=== PATIENT | female | born 1975 | race Caucasian/White ===

== ENCOUNTER → 2020-10-16 09:32 | Outpatient (BNVA) | payer OTHER, SELFPAY | PROVIDERS: PCP Internal Medicine; Visit Provider Internal Medicine ==

== ENCOUNTER 2020-10-27 18:54 | Outpatient (REF) | payer OTHER, SELFPAY ==
--- NOTE | ~2020-10-27 | MR_ITS ---
EXAMINATION: MR LUMBAR SPINE WITHOUT CONTRAST CLINICAL INFORMATION: Post laminectomy syndrome. COMPARISON: None TECHNIQUE: MRI of the lumbar spine was obtained using routine sequences without contrast. FINDINGS: There are postoperative findings related to interbody placement at the L3-L4 level. The L4-L5 disc appears hypoplastic. The remainder of the nonsurgical disc heights appear preserved. There is minimal anterolisthesis of L5 on S1. Bone marrow edema is seen within the right L5 and S1 pedicles compatible stress response. A small focus of T2 hyperintensity is seen within the ventral aspect of the distal spinal cord at the T12 level best seen on sagittal T2 series 2 image /14. The cauda equina nerve roots appear normal. The visualized paraspinal muscles and intra-abdominal and pelvic contents are within normal limits. SPINAL LEVELS: L1-L2: No posterior disc abnormality. No spinal canal or neural foraminal stenosis. L2-L3: No posterior disc abnormality. Mild facet arthropathy. No spinal canal or neural foraminal stenosis. L3-L4: Interbody disc replacement. Fusion hardware seen in the bilateral pedicles. Bulging disc mildly encroaches on the left subarticular zone. No foraminal nerve root compression. L4-L5: Hypoplastic disc. Moderate to severe narrowing of the right neural foramen which appears to be partly congenital related to dysplasia of the right-sided posterior elements. No spinal canal stenosis. Mild narrowing left neural foramen. L5-S1: Disc bulging with severe facet arthropathy. Left-sided synovial facet cyst which abuts the traversing left S1 nerve root. An additional synovial facet cyst is seen projecting posteriorly. No spinal canal stenosis. Bulging disc abuts the exiting right L5 nerve root. Mild bilateral neural foraminal stenosis. MR/MR lumbar spine wo con IMPRESSION: A small focus of T2 hyperintensity is seen within the ventral aspect of the distal spinal cord at the T12 level. The etiology of this signal abnormality is indeterminate. A demyelinating plaque could have this appearance. Consider further imaging of the neuroaxis. Stress response is seen within the right-sided L5 and S1 pedicles. Postoperative findings are seen at the L3-L4 level. Spinal canal stenosis or foraminal nerve root compression is seen. At L4-L5 the disc appears hypoplastic which is likely congenital. There is moderate to severe narrowing of the right-sided neural foramen which is likely partly congenital related to dysplastic posterior elements. At L5-S1 there is a small left-sided synovial facet cyst which abuts the traversing left S1 nerve root. Bulging disc abuts the exiting right L5 nerve root.
== END 2020-10-27 18:55 | disposition home or self-care (01) ==
LOC: HO.MRI 18:54
PROVIDERS: PCP Internal Medicine; Visit Provider Anesthesiology
DX: M96.1 Postlaminectomy syndrome, not elsewhere classified (principal)
CPT/HCPCS: 72148

== ENCOUNTER → 2020-11-09 10:59 | Outpatient (BNVA) | payer OTHER, SELFPAY | PROVIDERS: PCP Internal Medicine; Visit Provider Internal Medicine ==

== ENCOUNTER 2020-12-16 06:19 | Outpatient (REF) | payer OTHER, SELFPAY ==
--- NOTE | ~2020-12-16 | FL_ITS ---
EXAMINATION: XR FLUOROSCOPY WITH IMAGES CLINICAL INFORMATION: M96.1 - Postlaminectomy syndrome, not elsewhere classified COMPARISON: MR lumbar spine 10/27/2020 TECHNIQUE: Fluoroscopy performed by Dr. Baldwin. Fluoroscopy time: 1.0 minutes DAP: 9.32 Gycm2 Images: 4 FINDINGS: There are postsurgical changes L3-L4 with pedicle screws and intradiscal cage. There is a spinal needle overlying outer aspect left L5 neural foramen. Other spot images show catheter overlying sacrum likely entering from sacral hiatus with epidural contrast lower lumbar spine. FL/FL guidance in treatment room IMPRESSION: Fluoroscopy for pain management procedures.
== END 2020-12-16 06:20 | disposition home or self-care (01) ==
LOC: HO.RADIR 06:19
PROVIDERS: Visit Provider Internal Medicine
DX: M96.1 Postlaminectomy syndrome, not elsewhere classified (principal); M47.816 Spondylosis without myelopathy or radiculopathy, lumbar region
CPT/HCPCS: 64999; J1040; Q9967

== ENCOUNTER → 2021-01-29 11:03 | Outpatient (BNVA) | payer OTHER, SELFPAY | PROVIDERS: PCP Internal Medicine; Visit Provider Internal Medicine ==

== ENCOUNTER → 2021-06-04 09:59 | Outpatient (BNVA) | payer OTHER, SELFPAY | PROVIDERS: PCP Internal Medicine; Visit Provider Internal Medicine ==

== ENCOUNTER 2021-07-21 05:52 | Outpatient (REF) | payer OTHER, SELFPAY ==
--- NOTE | ~2021-07-21 | FL_ITS ---
EXAMINATION: XR FL WITH IMAGES CLINICAL INFORMATION: Spondylosis without myelopathy. COMPARISON: 12/16/2020 TECHNIQUE: Fluoroscopy performed by Dr. Jean Pierre Baldwin. Fluoroscopy Time: 0.3 minutes. DAP: 2.68 Gycm2. Images: 3. FINDINGS: C-arm images demonstrate patient is status post previous instrumentation with cage placement at the L3-L4 level and pedicle screws at L4. Multiple surgical clips are present. Images demonstrate needle and contrast for injections overlying the regions of the facets/neural foramina L3 through S1. FL/FL guidance in treatment room IMPRESSION: Fluoroscopy provided for pain management.
== END 2021-07-21 05:53 | disposition home or self-care (01) ==
LOC: HO.RADIR 05:52
PROVIDERS: Visit Provider Internal Medicine
DX: M47.816 Spondylosis without myelopathy or radiculopathy, lumbar region (principal); M96.1 Postlaminectomy syndrome, not elsewhere classified
CPT/HCPCS: 64493; 64494; Q9967

== ENCOUNTER 2021-07-28 06:19 | Outpatient (REF) | payer OTHER, SELFPAY ==
--- NOTE | ~2021-07-28 | FL_ITS ---
EXAMINATION: XR FLUOROSCOPY WITH IMAGES CLINICAL INFORMATION: M47.816 - Spondylosis without myelopathy or radiculopathy COMPARISON: Fluoroscopic spot views 07/21/2021, MR lumbar spine 10/27/2020 TECHNIQUE: Fluoroscopy performed by Dr. Jean Pierre Baldwin. Fluoroscopy time: 0.3 minutes DAP: 2.00 Gycm2 Images: 4 FINDINGS: There is an intradiscal cage at L3-L4 and bilateral pedicle screws L4. There are spinal needles overlying the bilateral outer L2, L3, and L4 neural foramen. There is contrast seen in the respective nerve sheaths. Some early transforaminal epidural extension is suggested. No visible vascular communication. FL/FL guidance in treatment room IMPRESSION: Fluoroscopy for pain management procedures.
== END 2021-07-28 06:20 | disposition home or self-care (01) ==
LOC: HO.RADIR 06:19
PROVIDERS: Visit Provider Internal Medicine
DX: M47.816 Spondylosis without myelopathy or radiculopathy, lumbar region (principal); M96.1 Postlaminectomy syndrome, not elsewhere classified
CPT/HCPCS: 64493; 64494; J1040; Q9967

== ENCOUNTER → 2021-07-30 11:44 | Outpatient (BNVA) | payer OTHER, SELFPAY | PROVIDERS: PCP Internal Medicine; Visit Provider Internal Medicine | DX: Z13.89 Encounter for screening for other disorder (principal) ==

== ENCOUNTER 2022-01-14 12:36 | Outpatient (REF) | payer OTHER, SELFPAY ==
--- NOTE | 2022-01-14 15:29 | MHC.AU.AEV ---
Adult Audiological Evaluation Date of Visit: 01/14/22 Reason for Appointment: Jody has noticed a progressive decline in her hearing in the past few years. She noted particular difficulty hearing and understanding in background noise. Has hearing been tested previously?: Yes - Several years ago Previous Hearing Test Results: Results reporedtly showed a slight hearing loss; however, hearing aids were not recommended at that time. Ear History: Recent Ear Pain: Right Ear Family History of Hearing Loss?: Yes: Parents, siblings Medical History: Dizziness or Unsteadiness, Headache, High Blood Pressure, Migraines Jody reported that lesions were found on her brain about six months ago and per the notes from her primary care physician she is being evaluated for a demyelinating disease. Around that time, Jody reported noticing bouts of vertigo that last for several seconds occurring several times throughout a week. She also reported significant pain that extends from her right ear to the back of her neck. Allergies: Latex, penicillin Medication List: Lisinopril, Klonopin, Oxycodone, Gabapentin, Methocarbamol, Duloxetine Dr, Omeprazole Otoscopy: Right Ear: Tympanic membrane is retracted Left Ear: Unremarkable Tympanometry: Tympanometry performed due to: Patient reports sensation of aural fullness Right Ear: Negative Middle Ear Pressure (Type C) Left Ear: Normal Middle Ear System (Type A) Hearing Evaluation: Transducer(s) Used: Insert Earphones Method: Conventional Audiometry Stimuli Used: Pure Tones Right Ear: Normal hearing 250-8000 Hz Left Ear: Normal hearing 250-8000 Hz Speech Recognition Threshold (SRT): Method Used: Monitored Live Voice Stimuli Used: Spondee Words Right Ear: 20 dB HL Left Ear: 15 dB HL Word Discrimination: Method: Recorded Lists Word Lists Used:: W-22 Right Ear: 88% correct at 60 dB HL Left Ear: 84% correct at 60 dB HL Recommendations: Audiological re-evaluation in one year. Referral for vestibular testing (VNG or ENG). Referral to Ear, Nose, and Throat is recommended. Referral to Ear, Nose, Throat physician and for vestibular testing is recommended due to persistent bouts of vertigo as well as significant right ear pain. Return in one year for audiological re-evaluation or sooner if change in hearing is suspected. Diagnosis: Primary Diagnosis: H93.293 Abnormal Auditory Perception Secondary Diagnosis: H69.91 Unspecified Eustachian Tube Dysfunction, Right Ear Services Performed: Comprehensive Audiological Evaluation (CPT 07700), Tympanometry (CPT 74312) Signature: Provider: CHENCHO Bey
== END 2022-01-14 12:37 | disposition home or self-care (01) ==
LOC: HO.SH 12:36
PROVIDERS: Visit Provider Physician Assistant
DX: H93.293 Other abnormal auditory perceptions, bilateral (principal); H69.91 Unspecified Eustachian tube disorder, right ear
CPT/HCPCS: 92557; 92567

== ENCOUNTER 2023-03-20 09:03 | Outpatient (REF) | payer OTHER, SELFPAY ==
--- NOTE | ~2023-03-20 | XR_ITS ---
EXAMINATION: XR RIGHT KNEE, 2 VIEWS XR BILATERAL STANDING KNEE, ONE VIEW CLINICAL INFORMATION: Pain COMPARISON: None available. TECHNIQUE: Single view of the bilateral standing knees, 2 views of the right knee FINDINGS: No acute visible fracture or dislocation. Mild narrowing of the medial femorotibial compartments bilaterally. Mild narrowing of the right lateral patellofemoral compartment. Enthesopathy at the right quadriceps tendon insertion site. Joint space and alignment are otherwise maintained. Trace knee joint effusion. Soft tissues are unremarkable. XR/XR knee RT 2V IMPRESSION: 1. No acute visible fracture or dislocation. 2. Mild multicompartment degenerative changes. 3. Trace right knee joint effusion.
--- NOTE | ~2023-03-20 | XR_ITS ---
EXAMINATION: XR RIGHT KNEE, 2 VIEWS XR BILATERAL STANDING KNEE, ONE VIEW CLINICAL INFORMATION: Pain COMPARISON: None available. TECHNIQUE: Single view of the bilateral standing knees, 2 views of the right knee FINDINGS: No acute visible fracture or dislocation. Mild narrowing of the medial femorotibial compartments bilaterally. Mild narrowing of the right lateral patellofemoral compartment. Enthesopathy at the right quadriceps tendon insertion site. Joint space and alignment are otherwise maintained. Trace knee joint effusion. Soft tissues are unremarkable. XR/XR knee standing BI IMPRESSION: 1. No acute visible fracture or dislocation. 2. Mild multicompartment degenerative changes. 3. Trace right knee joint effusion.
== END 2023-03-20 09:04 | disposition home or self-care (01) ==
LOC: HO.HOSX 09:03
PROVIDERS: Visit Provider Orthopaedic Surgery
DX: S80.01XA Contusion of right knee, initial encounter (principal); M96.1 Postlaminectomy syndrome, not elsewhere classified
CPT/HCPCS: 73560; 73565

== ENCOUNTER 2023-03-20 09:47 | Outpatient (AMB) | payer OTHER, SELFPAY ==
--- NOTE | 2023-03-20 10:02 | A.OFFVIS_ITS ---
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 Patient reports that she has had ongoing pain for about 1 year now, has tried bracing. She explains that she has fallen out of bed onto the hands and knees. She feels increased pain with standing and walking, and also notes that she has weakness. Hx of L3-4 Fusion with Screws, she has seen pain mgmt and spine surgeons and is at [facility] for her back. Allergies acetaminophen [From Vicodin] Allergy (Mild, Verified 08/11/22 13:14) Unknown hydrocodone [From Vicodin] Allergy (Mild, Verified 08/11/22 13:14) Unknown amoxicillin [AMOXICILLIN] Allergy (Unknown, Verified 07/30/21 11:48) UNKNOWN ciprofloxacin [From CIPRO] Allergy (Unknown, Verified 07/30/21 11:48) UNKNOWN latex [LATEX] Allergy (Unknown, Verified 07/30/21 11:48) UNKNOWN levofloxacin [From LEVAQUIN] Allergy (Unknown, Verified 07/30/21 11:48) PASSES OUT, THROWING UP nicotine [NICOTINE] Allergy (Unknown, Verified 07/30/21 11:48) PATCH- RASH HPI PIPE WELDER-Right knee pain/swelling HPI Details Jody is a 48 year old woman who presents with complains of right knee pain. She complains of pain with daily activity, worse with standing, walking, or using stairs. She has a hx of multiple falls and weakness in her knee. She says she has fallen when stepping out of bed. She says her pain improves somewhat with prolonged walking, and she walks using a cane. She says her cane is used primarily due to her post-laminectomy syndrome. She wears a knee brace, which is somewhat helpful, and she occasionally tapes her knee up which helps as well. She denies any prior treatment options. She has a hx of L3-L4 fusion and follows with Pain management. [facility] Medical History (Updated 03/20/23 @ 10:12 by Yonathan Ball) Lumbar spondylosis Post laminectomy syndrome Arthritis Ovarian cyst Kidney stones Leucocytosis Erythrocytosis Chronic back pain GERD (gastroesophageal reflux disease) Asthma Surgical History (Updated 06/15/20 @ 09:55 by Oriana Porter MD) H/O right wrist surgery H/O: hysterectomy History of back surgery Family History (Updated 08/11/22 @ 13:29 by Rissa Yin) Father Lung cancer Mother CAD (coronary artery disease) Arthritis (Updated 10/19/20 @ 09:23 by Jean Pierre Baldwin MD) Alcohol intake: current Alcohol intake frequency: 3 or more drinks per day Patient Tobacco Use Status: Current everyday Tobacco user Review of Systems Const All systems reviewed & are unremarkable except as noted in HPI and below Physical Exam Vital Signs: BMI result Body Mass Index 27.5 Const General: no acute distress, alert and awake Orientation/consciousness: patient oriented x3 HEENT Head: Yes normocephalic and Yes atraumatic Eyes EOM: EOMs intact bilaterally Resp Effort & Inspection: normal respiratory effort and able to speak in complete sentences Cardio Jugular venous distension: no JVD Skin General skin exam: turgor normal Rashes: no rashes Neuro General: patient oriented x3 Extrem Other: Right Knee: mild ttp over tibial tubercle 4/5 quad strength no effusion ttp lateral retropatellar facet General: Yes normal to inspection and Yes no joint enlargement Psych Appearance: grossly normal Affect: normal affect Attitude: cooperative Results Reviewed Results Reviewed: I personally reviewed relevant radiographs NL right knee Assessment & Plan Assessment & Plan (1) Contusion of right knee: Code(s): S80.01XA - Contusion of right knee, initial encounter Plan: This is a 48 year old woman with a right tibal tubercle contusion. She has pain with daily activity, along with weakness, worse with ambulation or standing. She has a hx of falls and some relief from wearing a brace & using an assistive cane. I discussed her diagnosis and treatment options. I recommend PT, NSAIDs, taping/bracing, and she continue activity as tolerated. She was fitted for a bolster knee brace. She can follow up prn and contact the clinic if she would like to start formal PT. (2) Post laminectomy syndrome: Code(s): M96.1 - Postlaminectomy syndrome, not elsewhere classified Plan Scribed for Casey Durham MD by Yonathan Ball, medical sales, on 03/20/23 at 10:15 AM, EST. Orders: Orders XR knee standing BI Today M25.569 - Pain in unspecified knee XR knee RT 2V Today M25.569 - Pain in unspecified knee Coding Level of Care Code New Pt Level 3 (44119) Diagnoses Contusion of right knee S80.01XA Post laminectomy syndrome M96.1
[2023-03-20 10:03] VITALS: BMI 27.5
== END 2023-03-20 11:07 | disposition home or self-care (01) ==
PROVIDERS: PCP Internal Medicine; Visit Provider Orthopaedic Surgery
DX: S80.01XA Contusion of right knee, initial encounter (principal); M96.1 Postlaminectomy syndrome, not elsewhere classified
CPT/HCPCS: 99203

== ENCOUNTER → 2023-12-20 14:51 | Outpatient (RCR) | payer OTHER, SELFPAY ==
--- NOTE | 2020-06-15 09:53 | P.PNHO_ITS ---
Medical Summary - Medical Summary Date of Service: 06/15/20 Chief complaint: Follow-up Medical Summary: Diagnosis: Chronic leukocytosis The patient has been told of elevated blood counts for nearly 10 years. She used to see Dr. Eduardo at [facility] for several years until he retired. She has elevated white count. Last performed 11/28/2014 was 13.6 with a hemoglobin of 16.3 g/dL, hematocrit 50.5 and platelets of 466. MCV elevated at 104.8. Differential shows neutrophilic leukocytosis. She is a chronic smoker. Hematology consultation 12/23/2014 revealing a total white count of 14.4, hemoglobin 16.2, platelets of 419. Mild macrocytosis with an MCV of 101.1. Retic count of 1.9%., Vitamin B12 level at 167 pg/mL. LDH 199. Serum erythropoietin level was in the higher end of normal at 15.7. Bone marrow biopsy august 2015 revealed normal cellularity, active trilineage hematopoiesis, along with a non diagnostic lymphoid infiltrate, and decreased iron stores. Flow cytometry was negative. Interval History Interval history: Patient is here in follow-up after a long interval. She is doing all right, has gained weight because of the pandemic. She has not had any infections in the last few years. She stopped drinking alcohol but continues to smoke cigarettes daily. She says she is not ready to quit until she turns 49. She denies any chest pain, shortness of breath, cough, dizziness, loss of appetite or weight loss. Review of Systems - Constitutional Reports no additional constitutional complaints - Cardiovascular Reports no additional cardiovascular complaints - Respiratory Reports no additional respiratory complaints - Gastrointestinal Reports no additional gastrointestinal complaints [facility] Medical History: Medical History (Last Updated 06/15/20 @ 09:23 by Krys Liu RN) Asthma Chronic back pain Erythrocytosis GERD (gastroesophageal reflux disease) Leucocytosis Family History: Family History (Last Updated 06/15/20 @ 09:21 by Krys Liu RN) Father Lung cancer Surgical History: Surgical History (Last Updated 06/15/20 @ 09:20 by Krys Liu RN) H/O right wrist surgery H/O: hysterectomy History of back surgery Social History: Social History (Last Updated 06/15/20 @ 10:25 by Crystal Damon) Alcohol History: Alcohol intake: former Alcohol History Details: Alcohol intake frequency: does not drink Tobacco History: Smoking Status: Current every day smoker Oncology Screenings - ECOG Performance Status ECOG Performance Status: 1 Home Medications and Allergies Home Medications Medication Instructions Recorded Confirmed Type carisoprodol 1 tab PO BEDTIME 06/15/20 06/15/20 History clonazepam 1 tab PO DAILY 06/15/20 06/15/20 History doxycycline monohydrate 1 cap PO BID 06/15/20 06/15/20 History duloxetine 1 cap PO DAILY 06/15/20 06/15/20 History lisinopril 1 tab PO QAM 06/15/20 06/15/20 History oxycodone 1 tab PO QID 06/15/20 06/15/20 History topiramate 1 tab PO TID 06/15/20 06/15/20 History Allergies Allergy/AdvReac Type Severity Reaction Status Date / Time amoxicillin [AMOXICILLIN] Allergy Unknown UNKNOWN Unverified 01/09/20 16:43 ciprofloxacin [From CIPRO] Allergy Unknown UNKNOWN Unverified 01/09/20 16:43 latex [LATEX] Allergy Unknown UNKNOWN Unverified 01/09/20 16:43 levofloxacin [From LEVAQUIN] Allergy Unknown PASSES Unverified 01/09/20 16:43 OUT, THROWING UP nicotine [NICOTINE] Allergy Unknown PATCH- RASH Unverified 01/09/20 16:43 amoxicillin Allergy Unknown Uncoded 01/04/17 00:00 cipro Allergy Unknown Uncoded 01/04/17 00:00 latex Allergy Unknown Uncoded 01/04/17 00:00 levaquin Allergy Unknown Uncoded 01/04/17 00:00 Exam Vital signs: Vital Signs Temp Pulse Resp BP Pulse Ox 06/15/20 10:13 97.9 F 94 12 137/72 96 Intake and Output 06/14/20 06/15/20 06/15/20 22:59 06:59 14:59 Other: Weight 82.6 kg [place] Weight in Grams [id number] Patient Weight 06/16/20 06:59 Weight 82.6 kg - Constitutional Present: no acute distress - Routine HEENT Exam Head: Present: normal inspection Eye: Present: EOMI, normal appearance - Routine Neck Exam Present: normal inspection - Routine Respiratory Exam Present: CTAB - Routine Cardiovascular Exam Cardiovascular: Present: S1, S2 Data - Labs CBC & Chem 7: 06/15/20 10:06 06/15/20 10:06 Progress Note: A/P (1) Leucocytosis Status: Chronic Assessment and plan: 1. This is a 45-year-old female with history of leukocytosis, chronic polycythemia, thrombocytosis. JAK2 mutation was negative along with mildly elevated serum erythropoietin level which is suggestive of secondary erythrocytosis. BCR/ABL negative. She has been advised to quit smoking completely. Bone marrow bx 08/31/15, negative. 2. She has elevated serum iron levels and transferrin saturation even though bone marrow stores are decreased. 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 Iron studies are normal today. 3. Slightly decreased vitamin B12 level was with no evidence of intrinsic factor or parietal cell antibodies. On supplementation. Follow-up in 1 year. - Time Spent With Patient Total time spent is greater than 50% in coordination of care (as documented) at patient's floor/unit and/or counseling patient: 15 - 24 minutes
[2020-06-15 10:13] VITALS: BP 137/72; PULSE 94; RESP 12; TEMP 36.6; O2SAT 96; BMI 32.2
[2020-06-15 10:20] LABS: Basophils Absolute Auto 0.1 X10*3/uL (0.0-0.2); Basophils Percent Auto 0.7 % (0-2); Eosinophils Absolute Auto 0.3 X10*3/uL (0.0-0.4); Eosinophils Percent Auto 2.1 % (0-4); Hematocrit 45.4 % (37-47); Hemoglobin 15.2 g/dl (12.0-16.0); Imm Gran Abs Auto 0.07 X10*3/uL (0.00-0.03); Imm Gran Pct Auto 0.5 % (0.0-0.4); Lymphocytes Absolute Auto 4.1 X10*3/uL (1.2-4.9); Lymphocytes Percent Auto 29.6 % (20-40); MANUAL DIFF FLAG SCAN; Mean Corpuscular HGB Conc 33.5 g/dl (31.0-35.0); Mean Corpuscular Hemoglobin 32.7 pg (27.0-33.0); Mean Corpuscular Volume 97.6 fL (80-98); Mean Platelet Volume 8.6 fL (9.4-12.3); Monocytes Absolute Auto 0.9 X10*3/uL (0.1-1.2); Monocytes Percent Auto 6.4 % (2-11); Neutrophils Absolute Auto 8.4 X10*3/uL (2.0-8.3); Neutrophils Percent Auto 60.7 % (45-73); Platelet Count 435 X10*3/uL (160-400); Red Blood Count 4.65 X10*6/uL (4.20-5.50); SCAN SMEAR FLAG 1; White Blood Count 13.8 X10*3/uL (4.8-10.8)
[2020-06-15 10:56] LABS: Alanine Aminotransferase 8 U/L (0-31); Alkaline Phosphatase 75 U/L (39-117); Anion Gap 10 (12-20); Aspartate Amino Transferase 11 U/L (5-31); Bilirubin Total 0.4 mg/dL (0.0-1.0); Blood Urea Nitrogen 6 mg/dL (9-16); Calcium 8.8 mg/dL (8.4-10.2); Carbon Dioxide 23 mmol/L (22-29); Chloride 112 mmol/L (96-108); Creatinine Clr Calc Pharmacy 100.7; Estimated Glomerular Filt Rate > 60; Glucose Random 114 mg/dL (60-115); Iron 94 mcg/dL (30-160); Percent Iron Saturation 35 % (15-50); Potassium 3.9 mmol/L (3.3-5.1); Sodium 141 mmol/L (135-145); Total Iron Binding Capacity 272 mcg/dL (228-428); Total Protein 6.2 g/dL (6.5-8.0); Unsaturated Iron Binding 178 ug/dL
[2020-06-15 11:08] LABS: SLIDE REVIEW VERIFIED
--- NOTE | 2020-06-15 11:41 | MHC.HEMONCMA ---
Patient present to f/u on abnormal red and white cells. History reviewed, labs drawn and follow up in 1 year.
--- NOTE | 2021-06-15 10:56 | HO.HEMONCSCH ---
Left message letting patient know she no showed for her apt on 06/15/21, N/S letter mailed.
--- NOTE | 2022-09-23 10:17 | HE.ONCSEC ---
mailed no show ltr to pt
== END | disposition home or self-care (01) ==
LOC: HO.ONC 06-15 09:39
PROVIDERS: PCP Internal Medicine; Visit Provider Internal Medicine
DX: D72.829 Elevated white blood cell count, unspecified (principal); D75.1 Secondary polycythemia; D47.3 Essential (hemorrhagic) thrombocythemia; E53.8 Deficiency of other specified B group vitamins
CPT/HCPCS: 36415; 80053; 83540; 85025; 99213